=== PATIENT | male | born 1990 | race Caucasian/White ===

== ENCOUNTER 2022-07-22 19:19 | Emergency (ER) | payer SELFPAY ==
[~2022-07-22] VITALS: Ht 172.7 cm; Wt 73.5 kg
[~2022-07-22 19:19] MED LIST: ALBU90OI INH; AZIT250 PO; BACITO TOP; CODACE30 PO; GUAI100SY PO; PRED20 PO; [UNRECOGNIZED DRUG - OTHER]
[2022-07-22 19:35] VITALS: BP 147/101
== END 2022-07-22 20:55 | disposition home or self-care (01) ==
LOC: ER 19:19
DX: Z00.8 Encounter for other general examination (principal)
CPT/HCPCS: 99281

== ENCOUNTER 2024-01-13 16:52 | Emergency (ER) | payer OTHER ==
[~2024-01-13] VITALS: Ht 172.7 cm; Wt 74.8 kg
[2024-01-13 17:21] VITALS: BP 129/73
[2024-01-13] MEDS ORDERED: Ibuprofen 400 MG Tab PO ONE (23:05)
== END 2024-01-13 23:16 | disposition home or self-care (01) ==
LOC: ER 16:52
DX: M79.672 Pain in left foot (principal); M79.671 Pain in right foot; Z59.00 Homelessness unspecified
CPT/HCPCS: 99282; A9270

== ENCOUNTER 2024-02-22 16:30 | Observation (INO) | payer OTHER ==
[~2024-02-22] VITALS: Ht 172.7 cm; Wt 70.3 kg
[2024-02-22 18:10] LABS: BASOPHILS ABSOLUTE AUTO 0.06 K/mm3 (0.00-0.23); BASOPHILS PERCENT AUTO 1 % (0-2); EOSINOPHILS PERCENT AUTO 7 % (0-6); Hematocrit 40.3 % (37.0-53.0); Hemoglobin 13.8 g/dL (13.5-17.5); IMMATURE GRAN ABSOLUTE AUTO 0.01 K/mm3 (0.00-0.10); IMMATURE GRAN PERCENT AUTO 0 % (0-1); LYMPHOCYTES ABSOLUTE AUTO 2.87 K/mm3 (0.84-5.20); LYMPHOCYTES PERCENT AUTO 38 % (21-46); MONOCYTES ABSOLUTE AUTO 0.76 K/mm3 (0.16-1.47); MONOCYTES PERCENT AUTO 10 % (4-13); Mean Corpuscular HGB 31.4 pg (26.0-34.0); Mean Corpuscular HGB Conc 34.2 g/dL (31.5-36.5); Mean Corpuscular Volume 92 fL (80-100); Mean Platelet Volume 10.1 fL (9.1-12.4); NEUTROPHILS ABSOLUTE AUTO 3.31 K/mm3 (1.96-9.15); NEUTROPHILS PERCENT AUTO 44 % (41-73); Platelet Count 279 K/mm3 (150-400); RDW Coefficient Variation 13.4 % (11.7-14.2); RDW Standard Deviation 45.1 fL (35.1-46.3); White Blood Cell Count 7.51 K/mm3 (4.00-11.30)
[2024-02-22 18:23] LABS: U Amphetamine Screen Not Detected; U Barbituate Screen Not Detected; U Benzodiazapine Screen Not Detected; U Buprenorphine Screen Not Detected; U Cannabinoids Screen Not Detected; U Cocaine Screen Not Detected; U Methadone Screen Not Detected; U Methamphetamine Screen Not Detected; U Opiates Screen Not Detected; U Oxycodone Screen Not Detected; U Phencyclidine Screen Not Detected
[2024-02-22 18:46] LABS: Ethanol (Alcohol), Blood, Med <3 mg/dL; Salicylate <1.7 mg/dL (2.8-20.0)
[2024-02-22 18:57] LABS: Acetaminophen, Random <2.0 ug/mL (10.0-30.0); Alanine Aminotransfer (ALT/SGP 32 U/L (12-78); Albumin, Blood 3.1 g/dL (3.4-5.0); Albumin/Globulin Ratio 0.9 (0.8-1.8); Alk Phos 119 U/L (50-136); Anion Gap 9 mmol/L (3-11); Aspartate Aminotrans (AST/SGOT 23 U/L (12-37); Bilirubin, Total 0.2 mg/dL (0.1-1.0); Blood Urea Nitrogen 7 mg/dL (8-24); Bun/Creatinine Ratio 5.1 (12.0-20.0); CO2, Blood 29 mmol/L (21-32); Calcium, Blood 8.7 mg/dL (8.5-10.1); Chloride, Blood 103 mmol/L (98-108); Creatinine, Blood 1.36 mg/dL (0.60-1.20); Globulin, Blood 3.4 g/dL (2.2-4.0); Glomerular Filtration Rate 71 (60-); Glucose, Blood 94 mg/dL (70-99); Potassium, Blood 3.3 mmol/L (3.5-5.5); Sodium, Blood 138 mmol/L (136-145); Total Protein, Blood 6.5 g/dL (6.4-8.2)
[2024-02-22] MEDS ORDERED: Potassium Chloride 20 MEQ TabCR PO ONE (19:30)
[2024-02-22 23:29] VITALS: BP 118/84
--- NOTE | 2024-02-23 01:16 | NUR ---
PATIENT ARRIVED ON THE U AT 2238. ADMISSION FINISHED WITH PATIENT COOPERATION. HE HAD A SNACK AND THEN WENT TO BED.
--- NOTE | 2024-02-23 04:45 | NUR ---
PATIENT ARRIVED ON UNIT AT 2237. HE PRESENTS MALODOROUS AND DISHEVELED. [place] LIVING [place], BUT WAS ASKED BY THEM TO COME TO THE ED FOR A PSYCHIATRIC EVALUATION. HE STATES HE IS "GLAD TO BE HERE" AND "I HOPE THIS IS COMFORTABLE THE [facility]". HE WAS COOPERATIVE THROUGHOUT THE ADMISSION PROCESS, AND ACCEPTED A SANDWICH AND A DRINK. HE HAS NO MEDICATION AT THIS TIME. HE WAS SHOWN TO HIS ROOM AND WENT STRAIGHT TO BED, WHERE HE WAS NOTED TO BE RESTING QUIETLY WITH EYES CLOSED FOR THE REMAINDER OF THE SHIFT. HE HAD NO S/SX SUICIDAL IDEATION AT THIS TIME. CONTINUING TO MONITOR FOR SAFETY WITH Q15 MINUTE CHECKS.
[2024-02-23 08:10] VITALS: BP 140/95
== END 2024-02-23 08:49 | disposition still patient (30) ==
LOC: ER 16:30 → BHU 16:31 → EOR 16:31 → EDBEDREQSVC 21:56 → EDBEDREQTM 21:56 → EDBEDREQ 21:56 → BHU 22:16
PROVIDERS: ADMIT Emergency Medicine
DX: F20.9 Schizophrenia, unspecified (principal); R45.851 Suicidal ideations
CPT/HCPCS: 80053; 80320; 85025; 99285; A9270; G0378; G0480

== ENCOUNTER 2024-02-22 19:50 | Inpatient (IN) | payer OTHER ==
[~2024-02-22] VITALS: Ht 172.7 cm; Wt 70.3 kg
[2024-02-22] MEDS ORDERED: LORazepam 2 MG Tab PO PRN (21:20)
[2024-02-22] MEDS ORDERED: Ibuprofen 600 MG Tab PO PRN (21:20)
[2024-02-22] MEDS ORDERED: Haloperidol Lactate Inj. 5 MG/ML Injection IM PRN (21:20)
[2024-02-22] MEDS ORDERED: Haloperidol 5 MG Tab PO PRN (21:20)
[2024-02-22] MEDS ORDERED: HydrOXYzine Pamoate 50 MG Cap PO PRN (21:20)
[2024-02-22] MEDS ORDERED: FLU VACC TS2024-25(6MOS UP)/PF 45 MCG/0.5 ML SYRINGE IM ONE (21:20)
[2024-02-22] MEDS ORDERED: Ondansetron 4 MG SoluTab MM PRN (21:25)
[2024-02-22] MEDS ORDERED: OLANZapine ODT 10 MG Tab MM PRN (21:25)
[2024-02-22] MEDS ORDERED: TraZODone HCl 50 MG Tab PO PRN (21:25)
[2024-02-22] MEDS ORDERED: LORazepam 2 MG/ML 1ML Injection IM PRN (21:25)
[2024-02-22] MEDS ORDERED: Melatonin 3 MG Tab PO PRN (21:25)
[2024-02-22] MEDS ORDERED: Polyethylene Glycol 3350 17 gm PO PRN (21:25)
[2024-02-22] MEDS ORDERED: Acetaminophen 325 MG TABLET PO PRN (21:30)
[2024-02-22] MEDS ORDERED: Aluminum Hydroxide 320MG/5ML 473 ML PO PRN (21:30)
[2024-02-22] MEDS ORDERED: DiphenhydrAMINE HCl 50 MG Cap PO PRN (21:30)
[2024-02-22] MEDS ORDERED: Calcium Carbonate 500 MG Tab Chew PO PRN (21:30)
[2024-02-22] MEDS ORDERED: DiphenhydrAMINE HCl 50 MG/ML 1ML Vial IV PRN (21:30)
[2024-02-22 23:31] VITALS: BP 118/84
[2024-02-23] MEDS ORDERED: Multivitamins 1 Tab PO SCH (09:00)
--- NOTE | 2024-02-23 09:17 | NUR ---
ADMISSION ASSESSMENT INFORMATION DOCUMENTED FROM PREVIOUS ACCOUNT, DONE BY WILFRED FRIAS
--- NOTE | 2024-02-23 09:56 | NUR ---
ADMITTING ASSESSMENTS DONE BY WILFRED, TRANSCRIBED TO NEW ACCOUNT NUMBER BY THIS NURSE.
--- NOTE | 2024-02-23 09:57 | NUR ---
PT WAS UP EARLY AROUND 0745 REQUESTING COFFEE AND BREAKFAST, SPEAKS SOFTLY, AVERTS EYES, MAKING OCCASIONAL EYE CONTACT. HE WAS PACING IN THE HALLWAY AROUND 0830 AND ENCOURAGED TO SHOWER, WHICH HE DID INDEPENDENTLY, BUT QUICK. PT JOINED MINDFULLNESS/MOVEMENT GROUP AROUND 0909, PARTICIPATED AND THEN SAT WITH OTHER PATIENTS AND STAFF WATCHING TV. PT NOW IN DINING ROOM EATING SNACK.
[2024-02-23] MEDS ORDERED: Paliperidone 1.5 MG TAB.ER.24 PO SCH (11:00)
--- NOTE | 2024-02-23 16:06 | NUR ---
PT HAS BEEN UP AND INTERACTIVE WITH STAFF AND PATIENTS ALL DAY, PT TAKING MEDICATIONS AND ASKING QUESTIONS REGARDING THESE. HE HAS BEEN PARTICIPATING IN GROUPS AND INFORMAL GAMES AND TV TIME, INITIALLY THIS AM HE WAS GIVING 1-2 WORD ANSWERS, THROUGHOUT THE DAY HE IS SPEAKING MORE SPONTANEOUSLY AND MAKING HIS NEEDS KNOWN. DOES NOT APPEAR TO BE REACTING TO INTERNAL STIMULI, PT DENIES ANY HALLUCINATIONS A/V/T, PT DENIES ANY SI/HI WELL.
--- NOTE | 2024-02-24 04:10 | NUR ---
PATIENT WAS IN BED AT THE BEGINNING OF THE SHIFT, AND REMAINED IN THERE THROUGHOUT THE SHIFT. HE AWOKE FOR EVENING MEDICATIONS AND WAS CALM AND COOPERATIVE. HE ASKED PERTINENT QUESTIONS. HE WENT BACK TO LYING DOWN WITH EYES CLOSED AND RESPIRATIONS CONFIRMED AFTER TAKING HIS MEDICATIONS. HE DECLINED SNACK AT 1999. HE HAD NO S/SX SUICIDAL IDEATION THIS SHIFT. CONTINUING TO MONITOR FOR SAFETY WITH Q15 MINUTE CHECKS.
[2024-02-24 08:11] VITALS: BP 138/90
--- NOTE | 2024-02-24 08:47 | NUR ---
PT UP EARLY AND ATE BREAKFAST, TOOK MEDICATIONS WITHOUT ISSUES, PT NOW TAKING A SHOWER. PT SMILING AND CONVERSIVE WHEN PROMPTED
--- NOTE | 2024-02-24 09:52 | NUR ---
PT ALLOWED MHA TO HELP WITH BRUSHING OUT HAIR, PT ASKS ABOUT GETTING MAC TRIMMED LATER. EKG DONE PER ORDERS, PT PARTICIPATED IN MOVEMENT GROUP AND IS NOW WATCHING TV WITH STAFF AND PEERS.
[2024-02-24 20:50] VITALS: BP 138/88
--- NOTE | 2024-02-24 23:17 | NUR ---
Shift Note: Night Received Pt at 1900. Denied SI/HI/AVH. Endorsed anxiety 2/10 and depression 2/10, both due to "just everything." Appropriate eye contact. Denied pain and physical complaints. Med compliant; received PRNs (see MAR) for sleeplessness. Manual BP was done due to inaccurate reading with VS machine; BP was elevated (138/88), but no s/s of concern noted. Pt participated in evening wrap-up group. After snack, he retired to bed to the evening. No complications. Plan: Continue to provide safe, therapeutic environment in which to work on TP goals. Continue discharge planning.
--- NOTE | 2024-02-25 03:36 | NUR ---
Shift Summary: Night Pt was in his room resting at the beginning of shift. Discussed plan for the evening, with which Pt was in agreement. Participated in assessment; he denied SI/HI/AVH, and did not display s/s of such during the shift. He participated in wrap-up group and snack. Med compliant; received PRNs for sleeplessness (see MAR.) Retired to bed without complications. Rested throughout the night. Continued on q15 minute checks during the shift. See Shift Note for assessment details.
[2024-02-25 08:05] VITALS: BP 139/92
[2024-02-25] MEDS ORDERED: Paliperidone Palmitate 234 MG/1.5 ML SYR IM ONE (11:05)
--- NOTE | 2024-02-25 16:34 | NUR ---
DAY SHIFT SUMMARY PT UP WITH BREAKFAST AND PARTICIPATED IN ALL ACTIVITIES AND GROUPS. HE STATES "I SLEPT GOOD" DENIES SI/HI/AVH, PROVIDED 1 WORD RESPONSES FOR THE MOST PART OF DAY, HE IS COOPERATIVE AND ENGAGED WITH THE OTHER PTS IN THE [place]
--- NOTE | 2024-02-26 00:39 | NUR ---
Patient continues to rest comfortably in his bed. Appears to be sleeping. Chest rise and fall unlabored. will continue close monitoring
--- NOTE | 2024-02-26 04:14 | NUR ---
Patient is alert and oriented and cooperative with care. No SI,HI or AVH noted on assessment shortly before patient went to bed around 2029. No complaiints of pain or discomfort, just very tired and wishing to go to sleep early. Trazodone and melatonin given to aid a good nights sleep. No other needs expressed at that time. Will continue close monoitoring every 15 minutes for safety.
[2024-02-26 07:47] VITALS: BP 123/76
[2024-02-26] MEDS ORDERED: Paliperidone 1.5 MG TAB.ER.24 PO SCH (09:00)
--- NOTE | 2024-02-26 15:23 | NUR ---
SHIFT SUMMARY, DAY SHIFT PT STARTED THE DAY COOPERATIVE AND PARTICIAPTING IN THE [place] AND GROUPS. HE IS IN WATCHING TV AT THIS TIME. AT [facility] PT DENIED SI/HI/AVH. AROUND 1500 HE CAME TO DESK STATING THAT HE WASN'T DOING WELL. WHEN ASKED WHAT HE MEANT BY THAT HE STATED "THE INNUENDOES OR MY PERCEPTION?" PT ASKED IF THIS RN COULD SEE IF HE HAD MEDICATION FOR THESE AH's. MASS SCALE CHARTED AND PT MEETS IT, HE WAS MEDICATED WITH PO HALDOL AND BENEDRYL. UPON MEDICATING, PT NOTED TO BE VERY COOL TO TOUCH AND DIAPHORETIC. WILL CONTINUE TO MONITOR HIS CURRENT STATUS AND q15 CHECKS.
[2024-02-26 21:52] VITALS: BP 147/96
--- NOTE | 2024-02-27 04:38 | NUR ---
Patient is alert and oriented X3, quiet, but pleasant and cooperative with care. No SI, HI or AVH per patient last night during assessment. Bed at approximately 2100, and patient has slept all night so far. He was given PRN trazodone and melatonin last night with good effect. Will continue close monitoring every 15 minutes for safety and comfort.
--- NOTE | 2024-02-27 17:22 | NUR ---
SHIFT SUMMARY: PT DENIES SI AND A/V/H. PT A/O X4. PT HAS NO COMPLAINTS AND IS LOOKING FORWARD TO DISCHARGE NEXT WEEK. HE IS MORE INTERACTIVE ON CONVERSATIONS AT INTERVEIWING THIS AM. HE HAS BEEN PARTICIPATING IN GROUPS AND IS MED COMPLIANT. PT HAD A GOOD DAY. WILL CONTINUE TO MONITOR.
[2024-02-27 20:39] VITALS: BP 135/99
--- NOTE | 2024-02-28 04:07 | NUR ---
PATIENT WAS IN THE GROUP ROOM WATCHING TELEVISION AT THE BEGINNING OF THE SHIFT. HE JOINED STAFF AND PEERS IN THE DINING ROOM AT 1999 FOR SNACK TIME AND FOLLOW UP. HE ATE 100% OF HIS SNACK. HE WAS MEDICATION COMPLIANT. HE CAME BACK TO THE GROUP ROOM AFTER SNACK AND WATCHED MORE TELEVISION, THEN WENT TO BED. HE WAS NOTED TO BE RESTING QUIETLY WITH EYES CLOSED AND RESPIRATIONS CONFIRMED FOR THE REMAINDER OF THE SHIFT. HE HAD NO S/SX SUICIDAL IDEATION. CONTINUING TO MONITOR FOR SAFETY WITH Q15 MINUTE CHECKS.
[2024-02-28 08:20] VITALS: BP 145/88
--- NOTE | 2024-02-28 16:47 | NUR ---
SHIFT SUMMARY: PT A/O X4. PT HAD A GOOD DAY. PARTICIPATED IN ACTIVITIES. DENIES SI, AND A/V/H. STATES HE IS GLAD TO BE GOING HOME SOON. DISCHARGE FOR POSSIBLE NEXT SUNDAY. IS MORE INTERACTIVE VERBALLY WITH OTHERS. IS IN A BRIGHT MOOD. PT WILL RECEIVE HIS INVEGA DOSE ON 03/02/24. WILL CONTINUE TO MONITOR.
[2024-02-28 21:11] VITALS: BP 135/86
--- NOTE | 2024-02-29 04:24 | NUR ---
PATIENT WAS IN THE GROUP ROOM WITH STAFF AND PEERS AT THE BEGINNING OF THE SHIFT, WATCHING TELEVISION AND SOCIALIZING. HE JOINED THE GROUP IN THE DINING ROOM FOR SNACK AND FOLLOW UP AT 1999. HE WAS PLEASANT AND COOPERATIVE, INCLUDING WITH EVENING MEDICATIONS. HE HAD NO NEEDS OR CONCERNS NOTED THIS SHIFT. HE WENT TO BED AT ABOUT 2130 AND RESTED QUIETLY WITH EYES CLOSED AND RESPIRATIONS CONFIRMED FOR THE REMAINDER OF THE SHIFT. HE HAD NO S/SX SUICIDAL IDEATION OR SELF HARM. CONTINUING TO MONITOR FOR SAFETY WITH Q15 MINUTE CHECKS.
[2024-02-29 08:00] VITALS: BP 121/79
--- NOTE | 2024-02-29 17:17 | NUR ---
SHIFT SUMMARY: PT ALERT, ORIENTED AND COOPERATIVE WITH CARE. PT DENIED SI AND HI. ENDORSED AUDITORY HALLUCINATIONS DURING THE DAY. STATED THAT HE NEEDED SOMETHING TO "GET OBAMA OUT OF MY HEAD". PT MEDICATED WITH PRN ZYPREXA PER EMAR. PT ATTENED GROUPS, WAS PRESENT IN THE UNIT AND PARTICIPATED IN MILIEU.
[2024-02-29 20:56] VITALS: BP 146/93
--- NOTE | 2024-03-01 04:17 | NUR ---
SHIFT SUMMARY Pt was resting in bed during evening and sleeping intermittently overnight. MCGOVERN Invega Sustenna dose #2 is scheduled for 03/02/24. Pt plans to resume living outside in [place] at discharge. Reported AH r/t "Obama" on previous shift. Facial expression and lack of engagement suggest that pt was still attending to internal stimuli in the evening, but he did discuss. No report of SI/HI or needs expressed. Declined available PRNs. No scheduled HS meds. No issues or concerns this shift.
[2024-03-01 07:49] VITALS: BP 129/86
--- NOTE | 2024-03-01 18:04 | NUR ---
SHIFT SUMMARY: PT ALERT, ORIENTED AND COOPERATIVE WITH CARE. PT UP FOR MEALS AND WAS VISIBLE ON THE UNIT. SPENT TIME IN THE SENSORY ROOM. WAS MEDICATED WITH PRN FOR C/O HEARING OBAMA AND FEELING ANXIOUS. PT STATED RELIEF AND SPENT THE EVENING IN THE DAY ROOM WATCHING TV.
[2024-03-02 02:55] VITALS: BP 138/87
--- NOTE | 2024-03-02 04:08 | NUR ---
SHIFT SUMMARY Pt requested HS meds shortly after 1999 (no scheduled meds, gave available PRNs for sleep & anxiety after discussing symptoms and options with pt). Endorsed high anxiety, congruent with affect/body language. MASS score of 6. Denied active hallucinations, but engaged minimally in conversation. Participates in activities and is present in milieu intermittently, but keeps to self. Pt was able to sleep well overnight (however his snoring disrupted roommate's sleep). Performed self-care activities during the day, according to his completed community meeting worksheet. Mentions "shower" and "the alexander of [place] [address] Left " as highlights of the day. Due to receive Invega Sustenna 156mg MCGOVERN in the am (03/02/24).
[2024-03-02 07:50] VITALS: BP 122/87
[2024-03-02 08:53] VITALS: BP 126/82
[2024-03-02] MEDS ORDERED: Paliperidone Palmitate 156 MG/ML SYR IM SCH ×2 (09:00)
--- NOTE | 2024-03-02 10:21 | NUR ---
SHIFT NOTE: PT UP FOR BREAKFAST AND PARTICIPATING ACTIVELY. DENIES ANY SI/HI OR ANY AUDITORY OR VISUAL HAULLUCINATIONS. AFTER MEAL PT SHOWERED SELF AND THEN WENT TO THE SENSORY ROOM. HE RECIEVED HIS INJECTION OF INVEGA IN L DELTOID WITH COOPERATION. HE IS CALM AND COOPERATIVE AT THIS TIME.
--- NOTE | 2024-03-02 17:01 | NUR ---
SHIFT SUMMARY: PT WAS COOPERATIVE AND ACTIVELY PARTICIPATING IN ACTIVITIES. HE HAD C/O ANXIETY INCREASING AFTER LUNCH. HE RATED HIS ANXIETY 4/10. HIS MASS SCALE WAS 8/10. HE WAS MEDICATED WITH ZYPREXA AND USED THE SENSORY ROOM TO RELAX. HE STATED HIS TRIGGERS WERE BEING IN THE TV ROOM WITH THE NOISE AND EXTRA PEOPLE. THE ZYPREXA APPEARED TO BE AFFECTIVE AND PT WAS ABLE TO RETURN TO THE GROUP ROOM TO WATCH SOME TV. HE DENIES ANY SI/HI/AVH TODAY AND WAS INDEPENDENT WITH ADL'S.
[2024-03-02 21:01] VITALS: BP 116/74
--- NOTE | 2024-03-03 04:04 | NUR ---
NOC SHIFT SUMMARY Pt received 2nd dose of Invega Sustenna MCGOVERN 03/02/24. Aside from periodic anxiety attacks, managed with PRN Zydis, pt denies concerns with mood. Appropriate behavior and interactions observed. Pt ate evening snack with peers, then went to bed after receiving PRNs (trazodone, melatonin, Zydis). Pt was observed to be sleeping well overnight without issue.
[2024-03-03 08:06] VITALS: BP 128/94
--- NOTE | 2024-03-03 17:13 | NUR ---
Shift Summary Pt A/O x3-4; denies SI, HI, or any halllucinations at this time. Pt seems to be a bit more withdrawn today. He reported that he did not sleep well last night and did not go to morning group because he wanted to take a nap. He has been in bed sleeping or reading for the majority of the shift. Pt to possibly DC to [facility] tomorrow. The current plan is for him to DC to his mom but he is unable to stay at his mom's house. Currently awaiting contact back from [facility] to see if a hospital follow up appointment can be scheduled.
[2024-03-03 20:43] VITALS: BP 131/85
--- NOTE | 2024-03-04 04:11 | NUR ---
PATIENT WAS IN HIS ROOM AT THE BEGINNING OF THE SHIFT. HE CAME OUT FOR A TIME AND JOINED THE GROUP IN THE DINING ROOM FOR SNACK AT 1999. HE PARTICIPATED IN FOLLOW UP GROUP. HE STATED, "i HAD A REALLY GREAT DAY". HE WAS PLEASANT AND COOPERATIVE WITH CARES. HE WAS COMPLIANT WITH EVENING MEDICATIONS. HE WENT TO BED SHORTLY AFTER SNACK TIME AND WAS NOTED TO BE RESTING QUIETLY WITH EYES CLOSED AND RESPIRATIONS CONFIRMED FOR THE REMAINDER OF THE SHIFT. HE HAD NO S/SX SUICIDAL IDEATION OR SELF HARM. CONTINUING TO MONITOR FOR SAFETY WITH Q15 MINUTE CHECKS.
[2024-03-04 12:01] VITALS: BP 139/97
--- NOTE | 2024-03-04 15:14 | NUR ---
SHIFT SUMMARY PT A/O X4; PLEASANT AND COOPERATIVE WITH CARE. HE DENIES SI, HI, OR ANY HALLUCINATIONS. PT TO DISCHARGE TO [place] AT AROUND 1645 THIS SHIFT. HE IS TO BE DROPPED OFF AT THE [facility], WHERE HIS MOTHER WORKS. PT IS TO RETURN TO [place] TO ATTEND HIS FOLLOW UP APPOINTMENT. HE WILL FOLLOW UP IN [place] UNTIL HE IS ABLE TO GET ESTABLISHED IN [place]. MOTHER, IGOR, INFORMED OF THIS PLAN AND IS WILLING TO GIVE HIM A RIDE BACK TO [place] SO HE CAN ATTEND THIS APPOINTMENT. PT ATTENDED MOST GROUPS AND MEALS. HE CONTINUES TO BE MONITORED VIA Q15 ROUNDING FOR SAFETY.
--- NOTE | 2024-03-04 16:56 | NUR ---
[facility] ARRIVED, PT DISCHARGED FROM UNIT AT 1647. BELONGINGS RECONCILED WITH PT AND FREDY LEIVA, NO REPORTED DISCREPANCIES. PT STATES UNDERSTANDING OF DC INSTRUCTIONS AND FOLLOW UP APPOINTMENTS, PT MOTHER IS AWAITING HIS ARRIVAL IN [place] HE PREVIOUSLY ARRANGED.
== END 2024-03-04 16:47 | disposition home or self-care (01) | DRG 885 ==
LOC: BHU 19:50
PROVIDERS: ADMIT Psychiatry & Neurology Psychiatry
DX: F20.9 Schizophrenia, unspecified (principal); Z59.01 Sheltered homelessness; F32.A Depression, unspecified; Z79.891 Long term (current) use of opiate analgesic; Z79.899 Other long term (current) drug therapy; Z23 Encounter for immunization; Z91.148 Patient's other noncompliance with medication regimen for other reason
CPT/HCPCS: 93005; 93010; A9270